=== PATIENT | male | born 1985 | race Hispanic/Latino ===

== ENCOUNTER 2020-06-16 19:23 | Inpatient (IN) | payer OTHER, SELFPAY ==
[2020-06-16 21:32] LABS: Absolute Lymphocytes (CBC) 1.4 K/uL (0.7-4.9); Basophils % 0.4 % (0-1.3); Hematocrit 44.8 % (39.6-49.0); Lymphocytes % 12.7 % (15.3-44.8)
[2020-06-16 21:33] LABS: Urine Blood NEGATIVE (NEG); Urine Glucose 3+ (NEG); Urine Protein NEGATIVE (NEG); Urine pH 5.5 (5.0-7.0)
[2020-06-16] MEDS ORDERED: ONDANSETRON 4 MG/2 ML VIAL ONE (21:45)
[2020-06-16] MEDS ORDERED: MORPHINE 4 MG/ML SYR ONE ×2 (21:45→23:36)
[2020-06-16] MEDS ORDERED: METRONIDAZOLE 500mg IVPB 500 MG/100 ML BAG IV ONE (21:46)
[2020-06-16] MEDS ORDERED: Levofloxacin 750mg IV 750 MG/150 ML BAG IV ONE (21:46)
[2020-06-16] MEDS ORDERED: NA CHLORIDE 0.9% 1,000 ML ONE (21:46)
[2020-06-16 22:04] LABS: ALT/SGPT 82 U/L (12-78); AST/SGOT 19 U/L (15-37); Alkaline Phosphatase 188 U/L (45-117); BUN Blood Urea Nitrogen 11 mg/dL (7-18); Bicarbonate 26 mmol/L (21-32); Bilirubin Direct 0.2 mg/dL (0-0.2); Bilirubin Total 0.8 mg/dL (0.2-1.0); Glucose Level 248 mg/dL (74-106); Lipase 3199 U/L (73-393); Potassium 3.9 mmol/L (3.5-5.1); Protein, Total 7.9 g/dL (6.4-8.2); Sodium Level 140 mmol/L (136-145)
--- NOTE | 2020-06-16 23:04 | ER ---
Nurse's Notes [facility] Name: Alice Childress Age: 34 yrs Sex: Male : 1985 Arrival Date: 06/16/2020 Time: 19:30 Bed 13 Private MD: Diagnosis: Abdominal tenderness;Type 2 diabetes mellitus;Acute pancreatitis Presentation: 06/16 19:31 Chief complaint: Spouse and/or significant other states: "He has been having abdominal jd3 pain for 2 days. we went to [facility] and we were told it was an enlarged liver. by the time we got home from that hospital he was already in pain again and worse throughout today.". Coronavirus screen: At this time, the client does not indicate any symptoms associated with coronavirus-19. Ebola Screen: Patient negative for fever greater than or equal to 101.5 degrees Fahrenheit, and additional compatible Ebola Virus Disease symptoms. Initial Sepsis Screen: Does the patient meet any 2 criteria? No. Patient's initial sepsis screen is negative. Does the patient have a suspected source of infection? No. Patient's initial sepsis screen is negative. Risk Assessment: Do you want to hurt yourself or someone else? Patient reports no desire to harm self or others. Onset of symptoms was June 14, 2020. 19:31 Method Of Arrival: Ambulatory jd3 19:31 Acuity: NEAL 3 jd3 Historical: - Allergies: 19:33 No Known Allergies; jd3 - Home Meds: 19:33 None [Active]; jd3 - PMHx: 19:33 Diabetes - NIDDM; jd3 - PSHx: 19:33 Appendectomy; jd3 - Immunization history:: Adult Immunizations up to date. - Social history:: Smoking status: Patient/guardian denies using tobacco, the patient reports quitting approximately 1 years ago. Screenin:32 Abuse screen: Denies threats or abuse. Denies injuries from another. Nutritional ca1 screening: No deficits noted. Tuberculosis screening: No symptoms or risk factors identified. Fall Risk IV access (20 points). Assessment: 20:32 General: Appears in no apparent distress. comfortable, Behavior is calm, cooperative, ca1 appropriate for age. Pain: Complains of pain in umbilical area, anterior aspect of left lateral abdomen and anterior aspect of right lateral abdomen Pain currently is 7 out of 10 on a pain scale. Pain began 1 day ago. Neuro: Level of Consciousness is awake, alert, obeys commands, Oriented to person, place, time, situation. Cardiovascular: Heart tones S1 S2 present Capillary refill < 3 seconds Patient's skin is warm and dry. Respiratory: Airway is patent Respiratory effort is even, unlabored, Respiratory pattern is regular, symmetrical, Breath sounds are clear bilaterally. GI: Abdomen is round non-distended, Bowel sounds present X 4 quads. Abd is soft X 4 quads Abdomen is tender to palpation in posterior aspect of left lateral abdomen, anterior aspect of right lateral abdomen, right lower quadrant and left lower quadrant. : No signs and/or symptoms were reported regarding the genitourinary system. EENT: No signs and/or symptoms were reported regarding the EENT system. Derm: Skin is intact, is healthy with good turgor, Skin is pink, warm \\T\\ dry. Musculoskeletal: Circulation, motion, and sensation intact. Capillary refill < 3 seconds. 22:34 Reassessment: Patient appears in no apparent distress at this time. Patient and/or jd3 family updated on plan of care and expected duration. Pain level reassessed. Patient is alert, oriented x 3, equal unlabored respirations, skin warm/dry/pink. Patient states feeling better. 23:37 Reassessment: Patient appears in no apparent distress at this time. Patient and/or jd3 family updated on plan of care and expected duration. Pain level reassessed. Patient is alert, oriented x 3, equal unlabored respirations, skin warm/dry/pink. pt admitted to ER hold status. charting continued in [facility]. Vital Signs: 19:33 BP 177 / 118; Pulse 99; Resp 18 S; Temp 97.6(TE); Pulse Ox 100% on R/A; Weight 127.01 jd3 kg (R); Height 6 ft. 2 in. (187.96 cm) (R); Pain 10/10; 20:55 BP 145 / 105 LA; Pulse 104; Resp 16 S; Pulse Ox 99% on R/A; ca1 22:34 BP 149 / 93; Pulse 94; Resp 17 S; Pulse Ox 97% on R/A; jd3 23:38 BP 156 / 92; Pulse 105; Resp 19 S; Pulse Ox 99% on R/A; jd3 19:33 Body Mass Index 35.95 (127.01 kg, 187.96 cm) jd3 ED Course: 19:30 Patient arrived in ED. am2 19:33 Triage completed. jd3 19:35 Arm band placed on. jd3 20:26 Lucas Pineda MD is Attending Physician. elisa 20:32 Patient has correct armband on for positive identification. Placed in gown. Bed in low ca1 position. Call light in reach. Side rails up X2. Pulse ox on. NIBP on. Warm blanket given. 20:33 Khadijah Mahoney, FABY is Primary Nurse. ca1 21:15 Inserted saline lock: 20 gauge in right antecubital area, using aseptic technique. dh4 Blood collected. 22:06 Chest Single View XRAY In Process Unspecified. EDMS 22:50 CT Abd/Pelvis - IV Contrast Only In Process Unspecified. EDMS 23:04 Prince Morris MD is Hospitalizing Provider. elisa 23:39 No provider procedures requiring assistance completed. Patient admitted, IV remains in jd3 place. 11 00:50 covid. rr5 07:17 COVID-19 Sent. sv Administered Medications: 11 21:29 Drug: NS 0.9% 1000 ml Route: IV; Rate: 1 bolus; Site: right antecubital; ca1 23:36 Follow up: Response: No adverse reaction; IV Status: Completed infusion; IV Intake: jd3 1000ml 21:30 Drug: Zofran (Ondansetron) 4 mg Route: IVP; Site: right antecubital; ca1 22:30 Follow up: Response: No adverse reaction jd3 21:32 Drug: morphine 4 mg {Note: rass 0.} Route: IVP; Site: right antecubital; ca1 22:30 Follow up: Response: No adverse reaction; RASS: Alert and Calm (0) jd3 21:34 Drug: Flagyl 500 mg Volume: 100 ml; Route: IVPB; Rate: 200 ml/hr; Infused Over: 30 ca1 mins; Site: right antecubital; 22:30 Follow up: Response: No adverse reaction; IV Status: Completed infusion jd3 22:14 Drug: levofloxacin 750 mg Volume: 150 ml; Route: IVPB; Infused Over: 90 mins; Site: jd3 right antecubital; 23:37 Follow up: Response: No adverse reaction; IV Status: Infusion continued upon admission jd3 23:35 Drug: NS 0.9% 1000 ml Route: IV; Rate: 1 bolus; Site: right antecubital; jd3 06/17 00:07 Follow up: Response: No adverse reaction; IV Status: Infusion continued upon admission jd3 06/16 23:35 Drug: NS 0.9% 1000 ml Route: IV; Rate: 1 bolus; Site: right antecubital; jd3 06/17 00:07 Follow up: Response: No adverse reaction; IV Status: Infusion continued upon admission jd3 06/16 23:35 Drug: morphine 4 mg Route: IVP; Site: right antecubital; jd3 06/17 00:07 Follow up: Response: No adverse reaction; RASS: Alert and Calm (0) jd3 06/16 23:36 Drug: Pepcid 20 mg Route: IVP; Site: right antecubital; jd3 06/17 00:07 Follow up: Response: No adverse reaction jd3 Intake: 06/16 23:36 IV: 1000ml; Total: 1000ml. jd3 Outcome: 23:04 Decision to Hospitalize by Provider. elisa 23:39 Admitted to ER Hold. Please see [facility] for further documentation. jd3 23:39 Condition: stable 23:39 Instructed on the need for admit, Demonstrated understanding of instructions. 06/17 07:53 Patient left the ED. sv Addendum: 06/20/2020 17:46 Addendum: COVID-19 Result: Negative result given to RN to notify pt. Notified pt of i w negative COVID 19 swab results. Pt advised that even with a negative test result they should remain in isolation until symptom free for 3 days without medication. Pt also advised to return to the ED for worsening symptoms. Signatures: Dispatcher [employer] EDMS Su Mena RN RN sv Anderson, Corey, MD MD cha Williams, Irene, RN RN iw Moreno, Amanda am2 Davies, Jonathon, RN RN jd3 Roque, Raymond, RN RN rr5 Khadijah Mahoney RN RN ca1 Huhn, Donald [facility] Corrections: (The following items were deleted from the chart) 06/16 19:36 19:33 Pulse 108bpm; Resp 18bpm; Spontaneous; Pulse Ox 100% RA; Temp 97.6F Temporal; jd3 127.01 kg Reported; Height 6 ft. 2 in. Reported; BMI: 35.9; Pain 10/10; jd3 23:40 23:38 Pulse 105bpm; Resp 19bpm; Spontaneous; Pulse Ox 99% RA; jd3 jd3
--- NOTE | 2020-06-16 23:05 | EDPHYS ---
Physician Documentation [facility] Name: Alice Childress Age: 34 yrs Sex: Male : 1985 Arrival Date: 06/16/2020 Time: 19:30 Bed 13 Private MD: ED Physician Lucas Pineda HPI: 06/16 21:29 This 34 yrs old Male presents to ER via Ambulatory with complaints of elisa Abdominal Pain. Historical: - Allergies: 19:33 No Known Allergies; jd3 - Home Meds: 19:33 None [Active]; jd3 - PMHx: 19:33 Diabetes - NIDDM; jd3 - PSHx: 19:33 Appendectomy; jd3 - Immunization history:: Adult Immunizations up to date. - Social history:: Smoking status: Patient/guardian denies using tobacco, the patient reports quitting approximately 1 years ago. ROS: 21:30 Constitutional: Negative for fever, chills, and weight loss, Eyes: Negative for injury, elisa pain, redness, and discharge, ENT: Negative for injury, pain, and discharge, Neck: Negative for injury, pain, and swelling, Cardiovascular: Negative for chest pain, palpitations, and edema, Respiratory: Negative for shortness of breath, cough, wheezing, and pleuritic chest pain, Back: Negative for injury and pain, : Negative for injury, bleeding, discharge, and swelling, MS/Extremity: Negative for injury and deformity, Skin: Negative for injury, rash, and discoloration, Neuro: Negative for headache, weakness, numbness, tingling, and seizure, Psych: Negative for depression, anxiety, suicide ideation, homicidal ideation, and hallucinations, Allergy/Immunology: Negative for hives, rash, and allergies, Endocrine: Negative for neck swelling, polydipsia, polyuria, polyphagia, and marked weight changes, Hematologic/Lymphatic: Negative for swollen nodes, abnormal bleeding, and unusual bruising. 21:30 Abdomen/GI: Positive for abdominal pain, of the left upper quadrant, right lower quadrant and left lower quadrant. Exam: 21:30 Constitutional: This is a well developed, well nourished patient who is awake, alert, elisa and in no acute distress. Head/Face: Normocephalic, atraumatic. Eyes: Pupils equal round and reactive to light, extra-ocular motions intact. Lids and lashes normal. Conjunctiva and sclera are non-icteric and not injected. Cornea within normal limits. Periorbital areas with no swelling, redness, or edema. ENT: Nares patent. No nasal discharge, no septal abnormalities noted. Tympanic membranes are normal and external auditory canals are clear. Oropharynx with no redness, swelling, or masses, exudates, or evidence of obstruction, uvula midline. Mucous membranes moist. Neck: Trachea midline, no thyromegaly or masses palpated, and no cervical lymphadenopathy. Supple, full range of motion without nuchal rigidity, or vertebral point tenderness. No Meningismus. Chest/axilla: Normal chest wall appearance and motion. Nontender with no deformity. No lesions are appreciated. Respiratory: Lungs have equal breath sounds bilaterally, clear to auscultation and percussion. No rales, rhonchi or wheezes noted. No increased work of breathing, no retractions or nasal flaring. Back: No spinal tenderness. No costovertebral tenderness. Full range of motion. Male : Normal genitalia with no discharge or lesions. Skin: Warm, dry with normal turgor. Normal color with no rashes, no lesions, and no evidence of cellulitis. MS/ Extremity: Pulses equal, no cyanosis. Neurovascular intact. Full, normal range of motion. Neuro: Awake and alert, GCS 15, oriented to person, place, time, and situation. Cranial nerves II-XII grossly intact. Motor strength 5/5 in all extremities. Sensory grossly intact. Cerebellar exam normal. Normal gait. Psych: Awake, alert, with orientation to person, place and time. Behavior, mood, and affect are within normal limits. 21:30 Cardiovascular: Rate: tachycardic, Rhythm: regular, Pulses: Pulses are 4+ in bilateral radial, brachial, femoral, popliteal, posterior tibial and and dorsalis pedis arteries.. Heart sounds: normal, JVD: is not appreciated. Vital Signs: 19:33 BP 177 / 118; Pulse 99; Resp 18 S; Temp 97.6(TE); Pulse Ox 100% on R/A; Weight 127.01 jd3 kg (R); Height 6 ft. 2 in. (187.96 cm) (R); Pain 10/10; 20:55 BP 145 / 105 LA; Pulse 104; Resp 16 S; Pulse Ox 99% on R/A; ca1 22:34 BP 149 / 93; Pulse 94; Resp 17 S; Pulse Ox 97% on R/A; jd3 23:38 BP 156 / 92; Pulse 105; Resp 19 S; Pulse Ox 99% on R/A; jd3 19:33 Body Mass Index 35.95 (127.01 kg, 187.96 cm) jd3 MDM: 20:26 Patient medically screened. [facility] 21:31 Differential diagnosis: bowel obstruction, cholecystitis, Cholelithiasis, elisa diverticulitis, gastritis, Irritable bowel syndrome, Mesenteric ischemia or infarction, non-specific abd pain, pancreatitis, Peptic Ulcer Disease, Perf. Duodenal Ulcer, Pyelonephritis, Ureterolithiasis. Data reviewed: vital signs, nurses notes, lab test result(s), EKG, radiologic studies, CT scan, plain films. Data interpreted: lunchroom monitor: rate is 104 beats/min, rhythm is regular, Pulse oximetry: on room air is 99 %. Test interpretation: by ED physician or midlevel provider: ECG, plain radiologic studies. Counseling: I had a detailed discussion with the patient and/or guardian regarding: the historical points, exam findings, and any diagnostic results supporting the discharge/admit diagnosis, lab results, radiology results. 21:32 Medication response: Zofran markedly relieved the patient's nausea. [facility] 06/16 21:13 Order name: Basic Metabolic Panel; Complete Time: 22:58 ca1 06/16 21:13 Order name: CBC with Diff; Complete Time: 21:59 ca1 06/16 21:13 Order name: Hepatic Function; Complete Time: 22:58 ca1 06/16 21:13 Order name: Lipase; Complete Time: 22:58 ca1 06/16 21:13 Order name: Urine Culture [facility] 06/16 21:29 Order name: Urine Dipstick--Ancillary (enter results); Complete Time: 21:59 tt3 06/16 21:28 Order name: Chest Single View XRAY [facility] 06/16 23:03 Order name: Lipid Profile; Complete Time: 00:46 elisa 06/17 00:27 Order name: COVID-19 rr5 06/17 01:16 Order name: Glucose, Ancillary Testing [facility] 06/17 04:53 Order name: CBC with Automated Diff [facility] 06/17 05:13 Order name: Basic Metabolic Panel [facility] 06/17 05:13 Order name: Liver (Hepatic) Function [facility] 06/17 05:13 Order name: Lipase [facility] 06/16 21:13 Order name: IV Saline Lock; Complete Time: 21:14 ca1 06/16 21:13 Order name: Labs collected and sent; Complete Time: 21:14 ca1 06/16 21:13 Order name: Urine Dipstick-Ancillary (obtain specimen); Complete Time: 21:29 ca1 06/16 21:29 Order name: CT Abd/Pelvis - IV Contrast Only elisa Administered Medications: 21:29 Drug: NS 0.9% 1000 ml Route: IV; Rate: 1 bolus; Site: right antecubital; ca1 23:36 Follow up: Response: No adverse reaction; IV Status: Completed infusion; IV Intake: jd3 1000ml 21:30 Drug: Zofran (Ondansetron) 4 mg Route: IVP; Site: right antecubital; ca1 22:30 Follow up: Response: No adverse reaction jd3 21:32 Drug: morphine 4 mg {Note: rass 0.} Route: IVP; Site: right antecubital; ca1 22:30 Follow up: Response: No adverse reaction; RASS: Alert and Calm (0) jd3 21:34 Drug: Flagyl 500 mg Volume: 100 ml; Route: IVPB; Rate: 200 ml/hr; Infused Over: 30 ca1 mins; Site: right antecubital; 22:30 Follow up: Response: No adverse reaction; IV Status: Completed infusion jd3 22:14 Drug: levofloxacin 750 mg Volume: 150 ml; Route: IVPB; Infused Over: 90 mins; Site: jd3 right antecubital; 23:37 Follow up: Response: No adverse reaction; IV Status: Infusion continued upon admission jd3 23:35 Drug: NS 0.9% 1000 ml Route: IV; Rate: 1 bolus; Site: right antecubital; jd3 06/17 00:07 Follow up: Response: No adverse reaction; IV Status: Infusion continued upon admission j 06/16 23:35 Drug: NS 0.9% 1000 ml Route: IV; Rate: 1 bolus; Site: right antecubital; jd3 06/17 00:07 Follow up: Response: No adverse reaction; IV Status: Infusion continued upon admission j 06/16 23:35 Drug: morphine 4 mg Route: IVP; Site: right antecubital; jd3 06/17 00:07 Follow up: Response: No adverse reaction; RASS: Alert and Calm (0) j 06/16 23:36 Drug: Pepcid 20 mg Route: IVP; Site: right antecubital; jd3 06/17 00:07 Follow up: Response: No adverse reaction jd3 Disposition: 06/16/20 23:04 Hospitalization ordered by Prince Alexandra for Inpatient Admission. Preliminary diagnosis are Abdominal tenderness, Type 2 diabetes mellitus, Acute pancreatitis. - Bed requested for Telemetry/MedSurg (Inpatient). - Status is Inpatient Admission. sv - Condition is Stable. - Problem is new. - Symptoms have improved. Signatures: Dispatcher [employer] Su Kearney RN RN sv Webb, Martha, RN RN mw Anderson, Corey, MD MD cha Davies, Jonathon, RN RN jtammy Mahoney, Khadijah RN FABY ca1 Corrections: (The following items were deleted from the chart) 06/16 23:13 23:04 Hospitalization Ordered by Prince Alexandra JORDAN for Inpatient Admission. Preliminary diagnosis is Abdominal tenderness; Type 2 diabetes mellitus; Acute pancreatitis. Bed requested for Telemetry/MedSurg (Inpatient). Status is Inpatient Admission. Condition is Stable. Problem is new. Symptoms have improved. [facility] 06/17 05:48 06/16 23:13 06/16/2020 23:04 Hospitalization Ordered by Prince Alexandra JORDAN for Inpatient mw Admission. Preliminary diagnosis is Abdominal tenderness; Type 2 diabetes mellitus; Acute pancreatitis. Bed requested for [facility] ER HOLD. Status is Inpatient Admission. Condition is Stable. Problem is new. Symptoms have improved. 06/17 07:53 05:48 06/16/2020 23:04 Hospitalization Ordered by Prince Alexandra JORDAN for Inpatient sv Admission. Preliminary diagnosis is Abdominal tenderness; Type 2 diabetes mellitus; Acute pancreatitis. Bed requested for Telemetry/MedSurg (Inpatient). Status is Inpatient Admission. Condition is Stable. Problem is new. Symptoms have improved.
[2020-06-16] MEDS ORDERED: FAMOTIDINE 20 MG/2 ML VIAL IV ONE (23:36)
[2020-06-16] MEDS ORDERED: NA CHLORIDE 0.9% 2,000 ML ONE (23:36)
[2020-06-17 00:06] VITALS: BMI 35.9
[2020-06-17] MEDS: NA CHLORIDE 0.9% 1,000 ML IV SCH ×4 (00:15→20:42)
[2020-06-17] MEDS ORDERED: D50W 25 GM/50 ML SYRINGE/VIAL IV PRN (00:15)
[2020-06-17] MEDS ORDERED: ACETAMINOPHEN 500 MG TAB PO PRN (00:15)
[2020-06-17] MEDS ORDERED: GLUCAGON 1 MG/VIAL IM PRN (00:15)
[2020-06-17] MEDS ORDERED: ONDANSETRON 4 MG/2 ML VIAL IV PRN (00:15)
--- NOTE | 2020-06-17 00:18 | P.HP ---
Certification for Inpatient Patient admitted to: Inpatient With expected LOS: >2 Midnights Patient will require the following post-hospital care: None Practitioner: I am a practitioner with admitting privileges, knowledge of patient current condition, hospital course, and medical plan of care. Services: Services provided to patient in accordance with Admission requirements found in Title 42 Section 412.3 of the Code of Federal Regulations Patient History Date of Service: 06/17/20 Reason for admission: Acute pancreatitis History of Present Illness: This is a 34-year-old male with a history of bma-jqobryo-dyennajme diabetes mellitus type 2. Present to the emergency room today after having nausea and abdominal pain that started yesterday that had progressively worsened throughout today. Patient worked up in the emergency room and found to have a lipase over [address] scan that showed moderate inflammation around the pancreas consistent with acute pancreatitis. No pseudocyst or necrosis noted on CT at this time. Patient stated that he has occasional alcoholic beverage, but does not heavily drink. Unknown if he has triglyceridemia are not. No gallbladder issues in the past as well. Stated that the only medication that he takes at this time for is diabetes and metformin. Patient was put on pain medicine and fluids upon arrival to emergency room. Patient hemodynamically stable at this time and seems to improved overall but still in pain. Allergies No Known Allergies Allergy (Unverified 01/07/13 13:00) Home medications list reviewed: Yes - Past Medical/Surgical History Has patient received pneumonia vaccine in the past: No Diabetic: Yes -: Diabetes Past Surgical History: Patient denies surgical history - Family History Family History: Reviewed- Non-Contributory - Social History Smoking Status: Never smoker Smoking therapy provided: No Alcohol use: Yes CD- Drugs: No Caffeine use: No Place of Residence: Home Review of Systems General: Unremarkable Eyes: Unremarkable ENT: Unremarkable Respiratory: Unremarkable Cardiovascular: Unremarkable Gastrointestinal: Nausea, Abdominal Pain Genitourinary: Unremarkable Musculoskeletal: Unremarkable Integumentary: Unremarkable Neurological: Unremarkable Lymphatics: Unremarkable Physical Examination - Vital Signs Temperature: 97.6 F Blood Pressure: 149/93 Pulse: 100 Respirations: 16 Pulse Ox (%): 100 (RA) - Physical Exam General: Alert, In no apparent distress, Oriented x3 HEENT: PERRLA, Mucous membr. moist/pink, EOMI Neck: Supple, 2+ carotid pulse no bruit, JVD not distended, No Thyromegaly Respiratory: Clear to auscultation bilaterally, Normal air movement Cardiovascular: No edema, Normal pulses, Regular rate/rhythm, Normal S1 S2, No gallops, No rubs, No murmurs Capillary refill: <2 Seconds Gastrointestinal: Normal bowel sounds, Soft and benign, Non-distended, No masses, No rebound, No guarding, Tenderness (Epigastric region) Musculoskeletal: No clubbing, No swelling, No contractures, No erythema, No tenderness, No warmth Integumentary: No rashes, No breakdown, No significant lesion, No tenderness /swelling, No erythema, No warmth, No cyanosis Neurological: Normal speech, Normal strength at 5/5 x4 extr, Normal tone, Sensation intact, Cranial nerves 3-12 intact, Normal reflexes 2+, Normal affect Lymphatics: No axilla or inguinal lymphadenopathy - Studies Laboratory Data (last 24 hrs) 06/16/20 21:23: Triglycerides 375 H, Cholesterol 187, HDL Cholesterol 28 L, Cholesterol/HDL Ratio 6.68 06/16/20 21:23: WBC 11.2 H, Hgb 16.2, Hct 44.8, Plt Count 132 L 06/16/20 21:23: Sodium 140, Potassium 3.9, BUN 11, Creatinine 0.80, Glucose 248 H, Total Bilirubin 0.8, AST 19, ALT 82 H, Alkaline Phosphatase 188 H, Lipase 3199 H Assessment and Plan - Problems (Diagnosis) (1) Hypertension Onset Date: Unknown Current Visit: Yes Status: Acute Plan: Will continue to monitor patient's blood pressure as he has no history of it but has had multiple recorded pressures that were mildly hypertensive. Will start him on blood pressure medicine if needed. Qualifiers: Hypertension type: unspecified Qualified Code(s): I10 - Essential (primary) hypertension (2) Non-insulin dependent type 2 diabetes mellitus Current Visit: Yes Status: Chronic Plan: Patient with a history of pvi-szieofe-seugbadfd diabetes mellitus type 2. Patient currently on metformin. Will switch patient to a moderate sliding scale for tight glucose control at this time. This also subsequently helped with his mild elevation in triglycerides. (3) Acute pancreatitis Current Visit: Yes Status: Acute Plan: Patient has acute pancreatitis on CT and lipase. Patient will be allowed to do clear liquids only and will be hydrated via IV and given pain medication. Will see outpatient does over the next 12:48 p.m. to ensure that lipase starts to decrease in that patient can tolerate pain. Lungs patient does not have subsequent fevers or worsening abdominal pain. It is expected that patient be able to go home in the next couple of days. We will continue to further explore any other causes of acute pancreatitis. Qualifiers: Pancreatitis type: unspecified pancreatitis type Acute pancreatitis complication: no infection or necrosis Qualified Code(s): K85.90 - Acute pancreatitis without necrosis or infection, unspecified (4) Abdominal pain Current Visit: Yes Status: Acute Plan: Patient will have physical examination and will be monitored for acute abdomen. Patient given pain medicine and nausea medicine as needed. Qualifiers: Abdominal location: upper abdomen, unspecified Qualified Code(s): R10.10 - Upper abdominal pain, unspecified Discharge Plan: Home Plan to discharge in: 48 Hours - Advance Directives Does patient have a Living Will: No Does patient have a Durable POA for Healthcare: No - Code Status/Comfort Care Code Status Assessed: Yes Code Status: Full Code Critical Care: No Time Spent Managing Pts Care (In Minutes): 60
[2020-06-17] MEDS ORDERED: NA CHLORIDE 0.9% 1,000 ML ONE (00:38)
[2020-06-17 04:52] LABS: Absolute Lymphocytes (CBC) 1.5 K/uL (0.7-4.9); Basophils % 0.6 % (0-1.3); Hematocrit 40.9 % (39.6-49.0); Lymphocytes % 15.3 % (15.3-44.8); MPV 10.6 fL (7.6-11.3); RBC Red Blood Cell Count 4.54 M/uL (4.33-5.43)
[2020-06-17 05:12] LABS: ALT/SGPT 63 U/L (12-78); AST/SGOT 17 U/L (15-37); Albumin 3.4 g/dL (3.4-5.0); Alkaline Phosphatase 152 U/L (45-117); BUN Blood Urea Nitrogen 8 mg/dL (7-18); Bicarbonate 26 mmol/L (21-32); Bilirubin Direct 0.2 mg/dL (0-0.2); Glucose Level 197 mg/dL (74-106); Lipase 2496 U/L (73-393); Potassium 3.7 mmol/L (3.5-5.1); Protein, Total 6.8 g/dL (6.4-8.2); Sodium Level 140 mmol/L (136-145)
[2020-06-17] MEDS: INSULIN -REGULAR HUMAN 50 UNIT/0.5 ML ML SQ SCH ×4 (07:30→20:42)
[2020-06-17] MEDS ORDERED: INFLUENZA VACCINE (for 3y+) 0.5 ML DOSE IMVAC ONE (08:00)
--- NOTE | 2020-06-17 08:47 | RAD REPORT ---
EXAM DESCRIPTION: RAD - Chest Single View - 06/16/2020 10:06 pm CLINICAL HISTORY: ABDOMINAL DISTENTION Chest pain. COMPARISON: No comparisons FINDINGS: Portable technique limits examination quality. The lungs are grossly clear. The heart is normal in size. No displaced fractures. IMPRESSION: No acute intrathoracic process suspected.
[2020-06-17] MEDS: MORPHINE 4 MG/ML SYR IV PRN ×3 (09:17→20:42)
--- NOTE | 2020-06-17 09:44 | RAD REPORT ---
EXAM DESCRIPTION: Abdomen Pelvis W Contrast CLINICAL HISTORY: 34-year-old male with abdominal pain. COMPARISON: None. TECHNIQUE: CT of the abdomen and pelvis was performed following intravenous administration of contra st. Oral contrast was not administered. Multiplanar reformatted images were provided. This exam was p erformed according to our departmental dose optimization program which includes use of automated expo sure control, adjustment of the mA and/or kV according to patient size and/or use of iterative recons truction technique. FINDINGS: Chest: Evaluation through the lung bases reveals no focal opacity, pleural effusion or pne umothorax. Heart size is within normal limits. No pericardial effusion. Abdomen and pelvis: Edematous appearance of the pancreas with peripancreatic stranding at the level o f the distal body and tail suggestive of acute pancreatitis. The liver, gallbladder, spleen, bilateral kidneys and bilateral adrenal glands are within normal limi ts. Suspected diffuse hepatic steatosis, however limited findings on contrast enhanced CT examination . Slight increased density is identified at the level of the gallbladder fossa suggesting focal fatty sparing. Hepatomegaly measuring 19.7 cm. The vessels are patent and normal in caliber. No abdominopelvic lymph nodes are noted to be pathologically enlarged by CT measurement criteria. The bowel is within normal limits without abnormal bowel wall thickness or bowel dilation. No free air. No free abdominopelvic fluid collections. The appendix is not identified. The osseous structures are within normal limits. IMPRESSION: 1. Findings suggestive of acute pancreatitis as detailed above. 2. Suspected diffuse hepatic steatosis. 3. Hepatomegaly measuring 19.7 cm. Electronically signed by: Vianca Ratliff MD 06/16/2020 11:02 PM [employer] Due to temporary technical issues with the PACS/Fluency reporting system, reports are being signed by the in house radiologist without review as a courtesy to ensure prompt reporting. The interpreting r adiologist is fully responsible for the content of the report.
[2020-06-17] MEDS: ENOXAPARIN 40 MG/0.4 ML SQ SCH (16:32)
[2020-06-18] MEDS: NA CHLORIDE 0.9% 1,000 ML IV SCH ×4 (04:35→23:03)
[2020-06-18] MEDS: MORPHINE 4 MG/ML SYR IV PRN ×3 (04:35→21:00)
[2020-06-18] MEDS: INSULIN -REGULAR HUMAN 50 UNIT/0.5 ML ML SQ SCH ×4 (08:45→20:01)
--- NOTE | 2020-06-18 10:31 | P.PN ---
Subjective Date of Service: 06/18/20 Chief Complaint: Acute pancreatitis Subjective: Improving (Patient is responding to supportive care treatment. Diet advanced today) Physical Examination - Vital Signs Temperature: 97.9 F Blood Pressure: 136/81 Pulse: 74 Respirations: 16 Pulse Ox (%): 98 - Physical Exam General: Cooperative, Mild distress, Obese HEENT: Atraumatic, Normocephalic Neck: Supple Respiratory: Clear to auscultation bilaterally, Normal air movement Cardiovascular: No edema, Normal pulses, Regular rate/rhythm, Normal S1 S2 Gastrointestinal: Normal bowel sounds, Soft and benign, Non-distended, Other (left upper quadrant tenderness), Tenderness Musculoskeletal: No clubbing, No swelling, No contractures, No erythema, No tend erness, No warmth Integumentary: No rashes, No breakdown, No significant lesion, No tenderness/swelling, No erythema, No warmth, No cyanosis Neurological: Normal speech, Sensation intact, Normal affect - Studies Microbiology Data (last 24 hrs): 06/16/20 21:23 Clean Catch Urine [place] Count - Final No growth. 06/16/20 21:23 Clean Catch Urine - Final No growth. Assessment & Plan Physician Review Additional Text: Assessment Patient is a 34 year old male with type II diabetes mellitus, obesity admitted with acute pancreatitis of unkonwn etiology. He is responding to supportive care. Acute pancreatitis Type II diabetes mellitus Obesity Plan: Continue supportive care with IVF, pain medications and anti-emetics Advance diet as tolerated Patient's diabetes is worsening with A1c of nearly 10 now. He will need regular outpatient follow up with a PCP for an intense regimen. Continue insulin sliding scale while in house I anticipate discharge tomorrow
[2020-06-18] MEDS: ENOXAPARIN 40 MG/0.4 ML SQ SCH (16:46)
[2020-06-19 08:01] VITALS: O2SAT 96
[2020-06-19] MEDS: INSULIN -REGULAR HUMAN 50 UNIT/0.5 ML ML SQ SCH (08:01)
--- NOTE | 2020-06-19 08:22 | P.DS ---
Admission Date: 06/16/20 Discharge Date: 06/19/20 Disposition: ROUTINE DISCHARGE Discharge Condition: GOOD Reason for Admission: Acute pancreatitis Brief History of Present Illness: Please refer to H&P Hospital Course: Patient is a 34 year old male with type II diabetes mellitus, obesity admitted with acute pancreatitis of unknown etiology. This is his first episode. Denies any toxic habits. He responded well to supportive care. In addition, patient was also found to have a A1c 9.8, worse than a previous read. He is non- compliant on metformin. I spent approximately 10 minutes providing counseling regarding medication compliance and therapeutic approach which include lifestyle modification with diet and exercise. I also did discuss the option for insulin in case OHA were suboptimal. He will need to establish care with a PCP. Vital Signs/Physical Exam: Temp Pulse Resp BP Pulse Ox 98.8 F 69 16 137/82 99 06/19/20 04:00 06/19/20 04:00 06/19/20 04:00 06/19/20 04:00 06/19/20 04:00 General: In no apparent distress, Cooperative HEENT: Atraumatic, Normocephalic, EOMI Neck: Supple Respiratory: Clear to auscultation bilaterally, Normal air movement Cardiovascular: No edema, Normal pulses, Regular rate/rhythm, Normal S1 S2 Gastrointestinal: Normal bowel sounds, Soft and benign, Non-distended, No tenderness Musculoskeletal: No swelling, No contractures, No erythema, No tenderness, No warmth Neurological: Normal speech, Sensation intact, Normal affect Laboratory Data at Discharge: WBC 10.1 K/uL (4.3-10.9) 06/17/20 04:40 Hgb 14.6 g/dL (13.6-17.9) 06/17/20 04:40 Hct 40.9 % (39.6-49.0) 06/17/20 04:40 Plt Count 119 K/uL (152-406) L 06/17/20 04:40 Sodium 140 mmol/L (136-145) 06/17/20 04:40 Potassium 3.7 mmol/L (3.5-5.1) 06/17/20 04:40 BUN 8 mg/dL (7-18) 06/17/20 04:40 Creatinine 0.61 mg/dL (0.55-1.3) 06/17/20 04:40 Glucose 197 mg/dL (74-106) H 06/17/20 04:40 Total Bilirubin 1.0 mg/dL (0.2-1.0) 06/17/20 04:40 AST 17 U/L (15-37) 06/17/20 04:40 ALT 63 U/L (12-78) 06/17/20 04:40 Alkaline Phosphatase 152 U/L (45-117) H 06/17/20 04:40 Triglycerides 375 mg/dL (<150) H 06/16/20 21:23 Cholesterol 187 mg/dL (<200) 06/16/20 21:23 HDL Cholesterol 28 mg/dL (40-60) L 06/16/20 21:23 Cholesterol/HDL Ratio 6.68 06/16/20 21:23 Lipase 353 U/L (73-393) 06/19/20 07:10 Home Medications: Metformin HCl 1,000 mg PO BID 06/17/20 Atorvastatin Calcium [Lipitor] 40 mg PO BEDTIME #30 tablet 06/19/20 New Medications: Atorvastatin Calcium [Lipitor] 40 mg PO BEDTIME #30 tablet Followup: Donnell Miranda MD [Primary Care Provider] -
[2020-06-19 08:48] VITALS: BP 141/84; TEMP 96.8
== END 2020-06-19 09:16 | disposition home or self-care (01) | DRG 440 ==
LOC: ER 19:23 → ERHOLD 23:18 → 2ND 06-17 07:35
PROVIDERS: ADMIT Internal Medicine; ATTEND Internal Medicine
DX: K85.90 Acute pancreatitis without necrosis or infection, unspecified (principal); E11.9 Type 2 diabetes mellitus without complications; I10 Essential (primary) hypertension; E66.9 Obesity, unspecified; Z68.35 Body mass index [BMI] 35.0-35.9, adult; Z90.49 Acquired absence of other specified parts of digestive tract; Z87.891 Personal history of nicotine dependence; Z79.84 Long term (current) use of oral hypoglycemic drugs; Z91.14 Patient's other noncompliance with medication regimen; Z20.828 Contact with and (suspected) exposure to other viral communicable diseases
CPT/HCPCS: 36415; 71045; 74177; 80048; 80061; 80076; 81003; 82947; 83036; 83690; 85025; 87086; 87088; 96361; 96365; 96375; 99285; J1650; J2405; J7030; Q9967; U0002